=== PATIENT | male | born 1975 | race Two or more races ===

== ENCOUNTER 2019-04-23 06:25 | Emergency (ER) | payer BC ==
[~2019-04-23] VITALS: Ht 180.3 cm; Wt 118.0 kg
[2019-04-23] MEDS ORDERED: MORPHINE SULFATE 4 MG/ML CPJ (NOT FOR IM USE) IV STA (07:12)
[2019-04-23] MEDS ORDERED: SODIUM CHLORIDE 0.9% 1,000 ML IV ONE (07:12)
[2019-04-23] MEDS ORDERED: ONDANSETRON HCL 4MG/2ML INJ IV STA (07:12)
[2019-04-23] MEDS ORDERED: FAMOTIDINE 20MG/2ML VIAL IV STA (07:12)
[2019-04-23 07:52] LABS: BASOPHILS % 0.3 % (0.0-2.0); EOSINOPHILS % 0.5 % (0.0-5.0); HEMATOCRIT. 46.9 % (42.0-52.0); HEMOGLOBIN. 16.2 g/dL (14.0-18.0); LYMPHOCYTES % 12.6 % (20.0-50.0); MEAN CORPUSCULAR HEMOGLOBIN 32.8 pg (28.0-32.0); MEAN CORPUSCULAR VOLUME 94.7 fL (80.0-94.0); MEAN PLATELET VOLUME 8.7 fl (7.4-10.4); MONOCYTES % 7.5 % (2.0-8.0); NEUTROPHILS % 79.1 % (40.0-76.0); PLATELET 199 x1000/uL (130-400); RED BLOOD CELL COUNT 4.95 mill/uL (4.7-6.1); RED CELL DISTRIBUTION WIDTH 13.6 % (11.6-14.6)
[2019-04-23 07:56] LABS: CHLORIDE 105 mEq/L (98-107)
[2019-04-23 07:57] LABS: PROTHROMBIN TIME 10.6 sec (9.6-11.0)
[2019-04-23 08:00] LABS: ETHANOL BLOOD < 10 mg/dL
[2019-04-23] MEDS ORDERED: IOHEXOL-300 100 ML BOTTLE ONE (08:30)
[2019-04-23 10:19] LABS: CLARITY URINE CLEAR (CLEAR); COLOR URINE YELLOW (YELLOW); KETONES URINE NEGATIVE (NEGATIVE); LEUKOCYTE ESTERASE URINE NEGATIVE (NEGATIVE); NITRITE URINE NEGATIVE (NEGATIVE); OCCULT BLOOD URINE 1+ (NEGATIVE); PROTEIN URINE NEGATIVE (NEGATIVE); SPECIFIC GRAVITY URINE 1.041 (1.005-1.030); UROBILINOGEN URINE 0.2 E.U./dL (0.2-1.0)
[2019-04-23 10:31] LABS: *AMPHETAMINES SCREEN URINE NEGATIVE (NEGATIVE); *BARBITURATES SCREEN URINE NEGATIVE (NEGATIVE); *BENZODIAZEPINES SCREEN URINE NEGATIVE (NEGATIVE)
[2019-04-23 10:32] LABS: *COCAINE SCREEN URINE NEGATIVE (NEGATIVE); METHADONE URINE SCREEN NEGATIVE (NEGATIVE); OPIATES URINE SCREEN PRESUMTIVE POSITIVE (NEGATIVE)
[2019-04-23 10:33] LABS: CANNABINOID URINE SCREEN NEGATIVE (NEGATIVE); PHENCYCLIDINE URINE SCREEN NEGATIVE (NEGATIVE)
[2019-04-23 11:34] VITALS: BP 142/87
[2019-04-23] MEDS ORDERED: MAGNESIUM/ALUMINUM HYDROXIDE/SIMETHICONE 30ML UDC PO ONE (11:45)
== END 2019-04-23 11:48 | disposition home or self-care (01) ==
LOC: ER 06:25
DX: R10.13 Epigastric pain (principal); K59.00 Constipation, unspecified; K42.9 Umbilical hernia without obstruction or gangrene; Z87.442 Personal history of urinary calculi; Z98.890 Other specified postprocedural states
CPT/HCPCS: 36415; 71045; 74177; 80053; 80305; 80320; 81003; 83690; 85025; 85610; 96361; 96374; 96375; 99284; J2270; J2405; J3490; J7030; Q9967; G0480